=== PATIENT | male | born 1980 | race Caucasian/White ===

== ENCOUNTER → 2019-08-20 | Outpatient (REF) | payer BC ==
[2019-08-21 13:43] LABS: GAMMA GLUTAMYLTRANSPEPTIDASE 89 U/L (15-85)
[2019-08-21 14:20] LABS: HEPATITIS B SURFACE ANTIGEN NEGATIVE (NEGATIVE)
[2019-08-21 14:46] LABS: HEPATITIS B CORE ANTIBODY IGM NEGATIVE (NEGATIVE); HEPATITIS C VIRUS ABY INDEX 0.1 INDEX (<0.8)
[2019-08-21 14:49] LABS: HEPATITIS A ANTIBODY IGM NEGATIVE (NEGATIVE)
== END ==
LOC: M LAB REF 12:37
PROVIDERS: ATTEND Family Medicine
DX: R74.0 Nonspecific elevation of levels of transaminase and lactic acid dehydrogenase [LDH] (principal)

== ENCOUNTER → 2023-09-21 | Outpatient (CLI) | payer BC | LOC: M WUC 12:33 | PROVIDERS: ATTEND Family Medicine | DX: R05.9 Cough, unspecified (principal) ==